=== PATIENT | female | born 1945 | race Caucasian/White ===

== ENCOUNTER 2021-12-30 16:40 | Emergency (ER) | payer BC ==
[~2021-12-30] VITALS: Ht 167.6 cm; Wt 77.0 kg
[2021-12-30 17:25] VITALS: BP 175/85
[2021-12-30] MEDS ORDERED: SULF1TAB49 PO (18:55)
[2021-12-30] MEDS ORDERED: CEPH500C81 PO (18:55)
[2021-12-30] MEDS ORDERED: sulfamethoxazole/trimethoprim DS (800/160mg) tablet PO ONE (19:00)
[2021-12-30] MEDS ORDERED: cephalexin 500mg capsule PO ONE (19:00)
== END 2021-12-30 19:28 | disposition home or self-care (01) ==
LOC: ER 16:41
DX: S81.812D Laceration without foreign body, left lower leg, subsequent encounter (principal); Z87.440 Personal history of urinary (tract) infections; Z85.828 Personal history of other malignant neoplasm of skin; Z79.2 Long term (current) use of antibiotics; W19.XXXD Unspecified fall, subsequent encounter
CPT/HCPCS: 99283; 99284